=== PATIENT | female | born 1990 | race Caucasian/White ===

== ENCOUNTER 2016-09-29 16:26 | Emergency (ER) | payer OTHER ==
[2016-09-29 19:53] LABS: Urine Bilirubin Negative (NEGATIVE); Urine Blood Negative /ul (NEGATIVE); Urine Ketone 5 mg/dL (NEGATIVE); Urine Nitrite Negative (NEGATIVE); Urine Protein Negative (NEGATIVE); Urine Specific Gravity 1.015 SP.GR. (1.005-1.010); Urine Urobilinogen Normal (NORMAL)
[2016-09-29 19:55] LABS: Hematocrit 40.1 % (37.0-47.0); Hemoglobin 12.4 gm/dL (12.5-16.0); Mean Cell Volume 77.3 fl (78-100); Mean Corpuscular Hemoglobin 23.9 pg (27-31); Mean Corpuscular Hgb Conc 30.9 g/dl (32-36); Mean Platelet Volume 11.1 fl (6.0-9.5); Neutrophil # 7.4 K/mm3 (1.3-6.0); Neutrophil % 65.2 % (42-75.0); Platelet Count 210 K/mm3 (150-450); Red Blood Count 5.19 M/mm3 (4.2-5.4); Red Cell Distribution Width 13.1 % (11.5-14.0); White Blood Count 11.3 K/mm3 (4.0-10.5)
--- NOTE | 2016-09-29 20:05 | ERNOTE ---
Abdominal HPI - General Chief Complaint: Abdominal Pain Time Seen by Provider: 09/29/16 19:58 Source: patient, family Exam Limitations: no limitations - Immun/Allergies/Home Medications Immunizatons: IMMUNIZATION HX Immunizations Up to Date Yes History of Influenza Vaccine No Allergies/Adverse Reactions: Allergies No Known Allergies Allergy (Unverified 09/29/16 17:27) Home Medications: HOME MEDICATIONS Ranitidine HCl [Zantac] 150 mg PO BID #30 tablet 09/29/16 [Last Taken Unknown] - History of Present Illness Narrative: Some stomach discomfort for 1-2 months. lately has been having worse abdominal pain with eating and has been taking mostly smoothies this weekend. She did eat normally this am without symptoms but worsened throughout the day with crampy pain non-specific Timing: constant Quality: moderate Activities at Onset: none Modifying Factors - (Worsens): Present: eating Review of Systems - Review of Systems Constitutional: Present: fever - subjective 1-2 days ago EYE: Present: no symptoms reported ENT: Present: no symptoms reported Respiratory: Present: no symptoms reported Cardiology: Present: no symptoms reported Gastrointestinal/Abdominal: Present: constipation - a week or so ago but has been normal for the past few days. Absent: nausea, vomiting Genitourinary: Present: no symptoms reported Musculoskeletal: Present: no symptoms reported Skin: Present: no symptoms reported Neurological: Present: no symptoms reported Endocrine: Present: excessive sweating - this past weekend Hematologic/Lymphatic: Present: no symptoms reported Psych: Present: no symptoms reported - Patient's Past Medical History Patient History - Cancer: No Hx of Cancer - Social History Living Situations: home Smoking Status: Never smoker Physical Exam - Physical Exam General Appearance: Present: wd/wn, alert, no apparent distress Eye Exam: Normal inspection: bilateral Respiratory: Present: no respiratory distress, no accessory muscle use Gastrointestinal/Abdominal: Present: normal bowel sounds, soft, tenderness - epigastric and less LUQ Back Exam: Present: normal inspection, normal range of motion Neurological Exam: Present: alert, oriented, normal mood/affect, no motor/ sensory deficits Skin Exam: Present: normal color, warm/dry Lymphatic Exam: Present: no adenopathy ED Progress - Results and Orders Patient's Lab Results:: I have reviewed the patient's lab results. Results and Orders: Laboratory Tests 09/29/16 09/29/16 09/29/16 19:32 19:45 19:45 WBC 11.3 H Hgb 12.4 L Hct 40.1 Plt Count 210 Sodium 137 Potassium 3.7 Chloride 100 Carbon Dioxide 25.0 BUN 10 Creatinine 0.81 Est GFR (Non-Af Amer) 92 D Random Glucose 77 Calcium 8.9 Total Bilirubin 0.3 AST 14 ALT 19 Alkaline Phosphatase 71 Total Protein 8.3 H Albumin 3.7 Amylase 53 Lipase 146 Urine Color Yellow Urine Appearance Slightly cloudy Urine pH 6.0 Ur Specific [place] 1.015 Urine Protein Negative Urine Glucose (UA) Negative Urine Ketones 5 Urine Blood Negative Urine Nitrate Negative Urine Bilirubin Negative Urine Urobilinogen Normal Ur Leukocyte Esterase 75 H Urine RBC None seen Urine WBC 0-5 Ur Epithelial Cells 0-5 Urine Bacteria 2+ H Urine Culture Comments Culture to follow - Vital Signs Vital Signs: Vital Signs 09/29/16 09/29/16 17:21 19:58 Temperature 35.5 C L Pulse Rate 99 84 Respiratory 16 18 Rate Blood Pressure 129/75 95/66 O2 Sat by Pulse 100 100 Oximetry - Progress/Reassessment Chief Complaint: Abdominal Pain Progress:: Improved - with GI coctail Departure - Departure Clinical Impression: Dyspepsia Disposition: Home self-care Condition: Good Instructions: Gastritis, Adult, [id number] Additional Instructions: follow up with your regular doctor if not improving in 1-2 weeks or if getting worse Prescriptions: Ranitidine HCl [Zantac] 150 mg PO BID #30 tablet
[2016-09-29 20:06] LABS: Urine Appearance Slightly Cloudy; Urine Bacteria 2+; Urine Color Yellow; Urine RBC None Seen /hpf (0-5); Urine WBC 0-5 /hpf (0-5)
[2016-09-29] MEDS ORDERED: LIDOCAINE HCL 20 ML UDC PO ONE (20:09)
[2016-09-29] MEDS ORDERED: SUCRALFATE 1 G/10 ML UDC PO ONE (20:09)
[2016-09-29] MEDS ORDERED: MAG HYDROX/ALUMINUM HYD/SIMETH 30 ML UDC PO ONE (20:09)
[2016-09-29 20:10] LABS: Albumin * 3.7 gm/dl (3.4-5.0); Anion Gap 15.7 mmol/L (6.8-13.8); BUN/Creatinine Ratio 12.3 (9.0-21.6); Bilirubin, Total 0.3 mg/dL (0.0-1.1); Ca. Corrected For Albumin 8.8 mg/dL (8.4-10.2); Calcium * 8.9 mg/dL (7.9-10.9); Potassium 3.7 mmol/L (3.4-4.6); Total Protein 8.3 gm/dL (6.2-8.2)
[2016-09-29 20:58] VITALS: BP 96/56
== END 2016-09-29 21:03 | disposition home or self-care (01) ==
LOC: ER 16:26
DX: R10.13 Epigastric pain (principal)